=== PATIENT | male | born 2000 | race Caucasian/White ===

== ENCOUNTER 2019-09-11 21:13 | Emergency (ER) | payer OTHER ==
[~2019-09-11] VITALS: Ht 170.2 cm; Wt 86.6 kg
[2019-09-11 21:22] VITALS: BP_SYST 136
--- NOTE | 2019-09-11 21:24 | NUR ---
Patient to ER bed 8 to gown for evaluation. Side rails up. Report given to FELIPE WADE.
--- NOTE | 2019-09-11 21:56 | NUR ---
ER Dr. Mathis at bedside examining patient.
[2019-09-11] MEDS ORDERED: DIPH-TET-PERTUS Vaccine 0.5 ML VIAL (ADACEL) IM ONE (22:00)
--- NOTE | 2019-09-11 22:00 | NUR ---
Pt C/O laceration to the LT thumb. Pt states he was using a knife and accidently cut his thumb. Bleeding is controlled at this time and C/O minimal pain. Pt has full ROM to the extremity. Denies any other symptoms at this time. Will continue to monitor.
[2019-09-11 22:12] VITALS: BP_SYST 136
--- NOTE | 2019-09-11 22:14 | NUR ---
Patient given written and verbal discharge instructions and verbalizes understanding. ER MD discussed with patient the results and treatment provided. Patient in stable condition. ID arm band removed. Patient educated on pain management and to follow up with PMD. Pain Scale 0. Opportunity for questions provided and answered. Medication side effect fact sheet provided.
== END 2019-09-11 22:14 | disposition home or self-care (01) ==
LOC: SED 21:13
DX: S61.012A Laceration without foreign body of left thumb without damage to nail, initial encounter (principal); W26.0XXA Contact with knife, initial encounter; Y93.89 Activity, other specified; Y92.89 Other specified places as the place of occurrence of the external cause; Y99.8 Other external cause status
CPT/HCPCS: 90715; 99283

== ENCOUNTER 2020-06-18 18:53 | Emergency (ER) | payer OTHER ==
[~2020-06-18] VITALS: Ht 170.2 cm; Wt 90.7 kg
[2020-06-18 19:10] VITALS: BP_SYST 122
[2020-06-18 19:40] VITALS: BP_SYST 122
== END 2020-06-18 19:40 | disposition home or self-care (01) ==
LOC: SED 18:53
DX: S90.121A Contusion of right lesser toe(s) without damage to nail, initial encounter (principal); W01.198A Fall on same level from slipping, tripping and stumbling with subsequent striking against other object, initial encounter; Y93.89 Activity, other specified; Y92.89 Other specified places as the place of occurrence of the external cause; Y99.8 Other external cause status
CPT/HCPCS: 99283

== ENCOUNTER 2020-10-31 18:02 | Emergency (ER) | payer OTHER ==
[~2020-10-31] VITALS: Ht 167.6 cm; Wt 84.4 kg
[2020-10-31 18:05] VITALS: BP_SYST 145
--- NOTE | 2020-10-31 18:10 | NUR ---
Patient triaged and placed in waiting room. VSS and patient appears in no acute distress at this time. Awaiting available bed, and MD notified of need for MSE.
--- NOTE | 2020-10-31 21:35 | NUR ---
ER in triage examining patient.
[2020-10-31] MEDS ORDERED: BACITRACIN ZINC 15 GM TOPICAL OINTMENT TP ONE (21:45)
[2020-10-31] MEDS ORDERED: BACITRACIN 1 GM OINT TP ONE (21:50)
[2020-10-31 22:04] VITALS: BP_SYST 138
--- NOTE | 2020-10-31 22:04 | NUR ---
Patient given written and verbal discharge instructions and verbalizes understanding. ER MD discussed with patient the results and treatment provided. Patient in stable condition. ID arm band removed. Rx of Bactroban 2% given. Patient educated on pain management and to follow up with PMD. Pain Scale 2/10. Opportunity for questions provided and answered.
== END 2020-10-31 22:04 | disposition home or self-care (01) ==
LOC: SED 18:02
DX: S61.216A Laceration without foreign body of right little finger without damage to nail, initial encounter (principal); W26.0XXA Contact with knife, initial encounter; Y93.89 Activity, other specified; Y92.89 Other specified places as the place of occurrence of the external cause; Y99.8 Other external cause status
CPT/HCPCS: 99283

== ENCOUNTER 2022-03-06 18:25 | Emergency (ER) | payer BC, OTHER ==
[~2022-03-06] VITALS: Ht 170.2 cm; Wt 90.3 kg
[2022-03-06 18:32] VITALS: BP_SYST 129
--- NOTE | 2022-03-06 20:20 | NUR ---
Patient to ER bed H1 to gown for evaluation. Side rails up.
--- NOTE | 2022-03-06 20:22 | NUR ---
Pt brought by self, A&Ox4, pt presents to ER with redness on L hand after burn with cooking oil, no blisters noted, skin pink and warm, cap refill <3, VSS.
--- NOTE | 2022-03-06 20:34 | NUR ---
Joseph vicente in ED - 03/06/22 at 2036 by [email or web address] SCOTT YI at bedside examining patient.
--- NOTE | 2022-03-06 20:35 | NUR ---
Dr Rich evaluating patient at bedside
[2022-03-06] MEDS ORDERED: BACITRACIN 1 GM OINT TP ONE ×2 (20:40→20:45)
[2022-03-06] MEDS ORDERED: IBUPROFEN 800 MG TABLET PO ONE (20:45)
[2022-03-06] MEDS ORDERED: ACETAMINOPHEN 500 MG TABLET PO ONE (20:45)
[2022-03-06 21:01] VITALS: BP_SYST 117
--- NOTE | 2022-03-06 21:01 | NUR ---
Patient given written and verbal discharge instructions and verbalizes understanding. ER MD discussed with patient the results and treatment provided. Patient in stable condition. ID arm band removed. Patient educated on pain management and to follow up with PMD. Pain Scale 0/10 Opportunity for questions provided and answered.
== END 2022-03-06 21:01 | disposition home or self-care (01) ==
LOC: SED 18:25
DX: T23.142A Burn of first degree of multiple left fingers (nail), including thumb, initial encounter (principal); X10.2XXA Contact with fats and cooking oils, initial encounter; Y93.89 Activity, other specified; Y92.89 Other specified places as the place of occurrence of the external cause; Y99.8 Other external cause status
CPT/HCPCS: 99283